=== PATIENT | female | born 2000 | race African-American/Black ===

== ENCOUNTER → 2023-08-06 21:09 | Emergency (ER) | payer MEDICAID ==
[~2023-08-06 21:09] MED LIST: ALBU0.084; IBUP-1455 PO; MONT4CHW74
== END | disposition left against medical advice (07) ==
LOC: ER 21:09
DX: O26.899 Other specified pregnancy related conditions, unspecified trimester (principal); Z53.21 Procedure and treatment not carried out due to patient leaving prior to being seen by health care provider

== ENCOUNTER 2023-08-07 19:57 | Observation (INO) | payer MEDICAID ==
[~2023-08-07] VITALS: Ht 167.6 cm; Wt 77.0 kg
[~2023-08-07 19:57] MED LIST changes: -IBUP-1455 PO
[2023-08-07] MEDS ORDERED: MORPHINE SULFATE 4 MG/ML SYR/VIAL IV ONE (20:45)
[2023-08-07] MEDS ORDERED: SODIUM CHLORIDE 0.9% 1,000 ML IV ONE (20:45)
[2023-08-07] MEDS ORDERED: ONDANSETRON HCL 4 MG/2 ML VIAL IV ONE (20:45)
[2023-08-07] MEDS ORDERED: OXYTOCIN 10UNIT/ML 1ML VIAL IM ONE (20:45)
[2023-08-07] MEDS ORDERED: OXYTOCIN 10UNIT/ML 1ML VIAL ONE (20:50)
[2023-08-07] MEDS ORDERED: miSOPROStol 50 MCG per PRE-CUT 1/2 TAB PO ONE (21:00)
[2023-08-07 21:02] VITALS: PULSE 93; RESP 13; O2SAT 100
[2023-08-07 21:07] LABS: Basophils # (auto) 0 10 ^3/uL (0-0.2); Basophils % (auto) 0.3 % (0.0-2.0); Eosinophils # (auto) 0.1 10 ^3/uL (0-0.8); Eosinophils % (auto) 0.5 % (0.0-7.0); Hematocrit 38.6 % (36.0-46.0); Hemoglobin 12.8 g/dL (12.2-16.2); Lymphocytes # (auto) 2.7 10 ^3/uL (0.4-5.4); Lymphocytes % (auto) 16.8 % (10.0-50.0); Mean Corpuscular Hgb Conc. 33.3 g/dL (32.0-36.0); Mean Corpuscular Volume 81.1 fL (80.0-100.0); Monocytes # (auto) 1.1 10 ^3/uL (0-1.3); Monocytes % (auto) 6.5 % (0.0-12.0); Neutrophils # (auto) 12.4 10 ^3/uL (1.6-8.6); Neutrophils % (auto) 75.9 % (37.0-80.0); Red Blood Cells 4.75 10^6/uL (4.0-5.20); Red Cell Distribution Width 13.7 % (11.8-14.3); White Blood Cell 16.3 10^3/uL (4.4-10.8)
[2023-08-07 21:19] LABS: Alanine Aminotransferase 18 U/L (7-40); Albumin 4.3 g/dL (3.2-4.8); Alkaline Phosphatase 92 U/L (46-116); Anion Gap 10 (5-15); Aspartate Aminotransferase 11 U/L (13-40); Bilirubin, Total 0.5 mg/dL (0.2-1.0); Blood Urea Nitrogen 10 mg/dL (9-23); Calcium 9.4 mg/dL (8.5-10.1); Carbon Dioxide 20 mmol/L (20-30); Chloride 106 mmol/L (98-107); Glucose 102 mg/dL (74-106); Potassium 3.3 mmol/L (3.5-5.1); Sodium 136 mmol/L (136-145); Total Protein 7.3 g/dL (5.7-8.2)
[2023-08-07] MEDS ORDERED: ACETAMINOPHEN 325 MG TAB PO PRN (21:30)
[2023-08-07] MEDS ORDERED: ONDANSETRON ODT 4 MG TAB PO PRN (21:30)
[2023-08-07] MEDS ORDERED: AZITHROMYCIN 250 MG TAB PO ONE (21:30)
[2023-08-07] MEDS ORDERED: DOCUSATE SOD 100 MG CAP PO SCH (22:00)
[2023-08-07 22:30] LABS: Basophils # (auto) 0 10 ^3/uL (0-0.2); Basophils % (auto) 0.3 % (0.0-2.0); Eosinophils # (auto) 0 10 ^3/uL (0-0.8); Eosinophils % (auto) 0.2 % (0.0-7.0); Hematocrit 36.2 % (36.0-46.0); Lymphocytes # (auto) 1.4 10 ^3/uL (0.4-5.4); Mean Corpuscular Hemoglobin 27.1 pg (28.0-32.0); Monocytes # (auto) 0.8 10 ^3/uL (0-1.3); Monocytes % (auto) 4.6 % (0.0-12.0); Neutrophils # (auto) 14.9 10 ^3/uL (1.6-8.6); Neutrophils % (auto) 86.9 % (37.0-80.0); Red Blood Cells 4.42 10^6/uL (4.0-5.20); Red Cell Distribution Width 13.6 % (11.8-14.3); White Blood Cell 17.1 10^3/uL (4.4-10.8)
[2023-08-07] MEDS: LACT. RINGERS/OXYTOCIN 20UNITS 1,000 ML IV SCH (23:15)
[2023-08-07] MEDS: IBUPROFEN 800 MG TAB PO SCH (23:49)
[2023-08-08] MEDS ORDERED: miSOPROStol 100 mcg TAB ONE (00:22)
[2023-08-08 07:40] VITALS: PULSE 69; RESP 18; O2SAT 99
[2023-08-08] MEDS ORDERED: IBUP-1455 PO (08:05)
[2023-08-08 08:30] VITALS: BP 99/66; PULSE 80; RESP 17; TEMP 97.9; O2SAT 99
[2023-08-08] MEDS: IBUPROFEN 800 MG TAB PO SCH (08:35)
[2023-08-08] MEDS: LACT. RINGERS/OXYTOCIN 20UNITS 1,000 ML IV SCH (08:35)
[2023-08-09 07:06] LABS: RPR Non Reactive (Non Reactive); Rubella Antibodies, IgG 1.11 index (Immune >0.99)
[2023-08-13 20:06] LABS: Treponema pallidum Ab (FTA-Ab) Non Reactive (Non Reactive)
== END 2023-08-08 08:35 | disposition still patient (30) ==
LOC: ER 20:01 → SUATTDRO 21:08 → OVERFLOW 08-08 03:23
PROVIDERS: ADMIT Obstetrics & Gynecology; ATTEND Obstetrics & Gynecology
DX: O03.4 Incomplete spontaneous abortion without complication (principal); O26.892 Other specified pregnancy related conditions, second trimester; R10.2 Pelvic and perineal pain; Z3A.19 19 weeks gestation of pregnancy
CPT/HCPCS: 36415; 76805; 80053; 84702; 85025; 86592; 86703; 86762; 86850; 86900; 86901; 87340; 88300; 88307; 96361; 96365; 96366; 96368; 96372; 96375; 99291; G0378; J0694; J2270; J2405; J2590; J7060

== ENCOUNTER 2024-04-07 09:54 | Emergency (ER) | payer MEDICAID, OTHER ==
[~2024-04-07] VITALS: Ht 167.6 cm; Wt 75.9 kg
[~2024-04-07 09:54] MED LIST changes: +IBUP-1455 PO
[2024-04-07 10:54] LABS: Eosinophils # (auto) 0 10 ^3/uL (0-0.8); Hemoglobin 13.9 g/dL (12.2-16.2); Monocytes # (auto) 0.3 10 ^3/uL (0-1.3); Nucleated Red Blood Cells % 0.1 %
[2024-04-07 10:57] LABS: Basophils # (auto) 0.1 10 ^3/uL (0-0.2); Basophils % (auto) 0.9 % (0.0-2.0); Eosinophils % (auto) 0.7 % (0.0-7.0); Hematocrit 43.6 % (36.0-46.0); Lymphocytes # (auto) 2.9 10 ^3/uL (0.4-5.4); Lymphocytes % (auto) 47.1 % (10.0-50.0); Mean Corpuscular Hemoglobin 25.7 pg (28.0-32.0); Mean Corpuscular Hgb Conc. 31.9 g/dL (32.0-36.0); Mean Corpuscular Volume 80.8 fL (80.0-100.0); Monocytes % (auto) 4.8 % (0.0-12.0); Neutrophils # (auto) 2.8 10 ^3/uL (1.6-8.6); Neutrophils % (auto) 46.5 % (37.0-80.0); Red Blood Cells 5.39 10^6/uL (4.0-5.20); Red Cell Distribution Width 14.7 % (11.8-14.3); White Blood Cell 6.1 10^3/uL (4.4-10.8)
[2024-04-07 12:00] LABS: Urine Bacteria None Seen /hpf (None Seen)
[2024-04-07 12:21] LABS: Urine Blood Negative /uL (Negative); Urine Budding Yeast OCCASIONAL /hpf (None Seen); Urine Clarity Clear (Clear); Urine Color Yellow (Yellow); Urine Protein, UAD Negative (Negative); Urine Urobilinogen Normal (Negative); Urine WBC 1 /hpf (0 - 5); Urine pH 6.5 (5.0-9.0)
[2024-04-07 14:00] VITALS: BP 136/70; PULSE 104; RESP 18; TEMP 98.4; O2SAT 100
== END 2024-04-07 14:05 | disposition home or self-care (01) ==
LOC: ER 09:54
DX: O20.0 Threatened abortion (principal); F12.10 Cannabis abuse, uncomplicated; Z3A.01 Less than 8 weeks gestation of pregnancy
CPT/HCPCS: 36415; 76801; 76817; 81001; 84702; 85025